=== PATIENT | female | born 1975 | race Hispanic/Latino ===

== ENCOUNTER 2017-01-27 12:09 | Outpatient (CLI) | payer MEDICAID ==
[2017-01-27] MEDS ORDERED: NACL ONE (13:08)
--- NOTE | 2017-01-27 13:36 | Cat Scan Report ---
CTA CHEST: History: Shortness of breath, pulmonary embolus Technique: Helical CT following IV contrast. Pulmonary embolus protocol. Sagittal and coronal reformatted images. Rotational MIP images. Findings: Compared to the CTA chest dated 06/02/15. Contrast bolus is satisfactory. No pulmonary embolus is identified. Please note that the right pulmonary arteries are smaller caliber than the left pulmonary arteries. This finding is unchanged and may be related to chronic pulmonary embolism. Please correlate with the patient's history. The thyroid gland, tracheobronchial tree, esophagus, heart, pericardium, mediastinal vessels, lung bush and bony thorax are unremarkable. Impression: No pulmonary embolus is identified. No change is demonstrated since 06/02/15. See above. These findings were called to Dr. Chambers's office at 1335 hrs.
== END 2017-01-27 12:10 | disposition home or self-care (01) ==
LOC: CT 12:09
DX: I74.11 Embolism and thrombosis of thoracic aorta (principal); M79.605 Pain in left leg; R60.1 Generalized edema
CPT/HCPCS: 71275; 93971; Q9967

== ENCOUNTER 2017-10-23 14:26 | Emergency (ER) | payer MEDICAID ==
[2017-10-23 15:08] VITALS: BP 130/76
[2017-10-23 15:29] LABS: Basophils # (Auto) 0.1 K/mm3 (0.0-0.1); Basophils % (Auto) 0.7 % (0.0-1.8); Eosinophils # (Auto) 0.1 K/mm3 (0.0-0.4); Eosinophils % (Auto) 1.8 % (0.0-4.3); Hematocrit 41.2 % (30.3-42.9); Hemoglobin 13.8 gm/dl (10.1-14.3); Lymphocytes # (Auto) 2.9 K/mm3 (1.2-5.4); Lymphocytes % (Auto) 37.2 % (13.4-35.0); Mean Corpuscular HGB Conc 34 % (30-34); Mean Corpuscular Hemoglobin 30 pg (28-32); Mean Corpuscular Volume 89 fl (79-97); Monocytes # (Auto) 0.5 K/mm3 (0.0-0.8); Monocytes % (Auto) 6.7 % (0.0-7.3); Platelet Count 240 K/mm3 (140-440); Red Blood Count 4.66 M/mm3 (3.65-5.03); Red Cell Distribution Width 14.1 % (13.2-15.2)
[2017-10-23 15:47] LABS: BUN/Creatinine Ratio 20; Blood Urea Nitrogen 12 mg/dL (7-17); Calcium 8.9 mg/dL (8.4-10.2); Hemolysis Index 1
--- NOTE | 2017-10-23 16:41 | XRay Report ---
FINAL REPORT EXAM: XR CHEST ROUTINE 2V HISTORY: Shortness of breath TECHNIQUE: PA and lateral views of the chest PRIORS: CXR 09/01/2015 FINDINGS: Lines, tubes, and devices: N/A Lungs and pleura: Trachea is normal in position. lungs are clear of infiltrate, pleural effusion, vascular congestion, or pneumothorax. No change. Cardiomediastinal silhouette: Cardiac and mediastinal silhouettes are unremarkable. Other: Bony structures are intact. IMPRESSION: No acute cardiopulmonary process seen. No change.
[2017-10-23] MEDS ORDERED: TYLENOL PO ONE (18:24)
[2017-10-23] MEDS ORDERED: ZOFRAN ODT ONE (18:54)
[2017-10-23] MEDS ORDERED: ZOFRAN ODT PO ONE (18:56)
--- NOTE | 2017-10-23 19:35 | Emergency Department Report ---
ED Chest Pain HPI - General Chief Complaint: Chest Pain Stated Complaint: CHEST PAIN Time Seen by Provider: 10/23/17 17:46 Source: patient, EMS Mode of arrival: Wheelchair Limitations: No Limitations - History of Present Illness Initial Comments: This is a 42 y.o. female that presents with chest pain for 2 days. Patient reports pain as 5/10 on pain scale and non-radiating. The pain is sharp and intermittent. Reports feeling worse since she arrived here. She have a headache since arrival and feel like her chest is tightening. Pain is in left chest wall area. Denies SOB, nausea, vomiting, radiating pain, burning sensation of throat , and recent travel. -: days(s) (2) Onset: during rest Pain Location: left chest Pain Radiation: none Severity: mild Severity scale (0 -10): 4 Quality: tightness, sharp Consistency: intermittent Improves With: nothing Worsens With: movement Treatments Prior to Arrival: none Aspirin use within the Past 7 Days: (0) No - Related Data Home Medications Medication Instructions Recorded Confirmed Last Taken Warfarin Sodium [Coumadin] 7.5 mg PO QDAY 07/15/13 06/02/15 01/27/15 FLUoxetine HCL [PROzac] 40 mg PO QDAY 01/28/15 06/02/15 01/28/15 clonazePAM [KlonoPIN] 1 mg PO Q8H 01/28/15 06/02/15 01/28/15 Gabapentin [Neurontin] 300 mg PO Q8HR 06/02/15 06/02/15 Unknown Previous Rx's Medication Instructions Recorded Last Taken Type HYDROcodone/APAP 10-325 [[place] 1 each PO Q8HR PRN #14 tablet 09/01/15 Unknown Rx 10-325 mg TAB] Levofloxacin [Levaquin TAB] 500 mg PO QDAY #10 tablet 09/01/15 Unknown Rx Promethazine [Phenergan TAB] 25 mg PO Q6HR PRN #20 tab 09/01/15 Unknown Rx Famotidine [Pepcid] 20 mg PO BID #20 tablet 07/05/16 Unknown Rx HYDROcodone/APAP 5-325 [[place] 1 - 2 each PO Q6HR PRN #10 tablet 07/05/16 Unknown Rx 5/325] Promethazine [Phenergan TAB] 25 mg PO Q6HR PRN #20 tab 07/05/16 Unknown Rx Promethazine [Phenergan] 25 mg [place] Q6HR PRN #10 supp.rect 07/05/16 Unknown Rx Allergies Allergy/AdvReac Type Severity Reaction Status Date / Time heparin Allergy Unknown Verified 05/20/14 22:00 ketorolac tromethamine Allergy Hives Verified 05/20/14 22:00 [From Toradol] pregabalin [From Lyrica] Allergy Unknown Verified 09/03/14 08:04 sulfamethoxazole Allergy Hives Verified 05/20/14 22:00 [From Septra] tramadol Allergy Hives Verified 05/20/14 22:00 trimethoprim [From Septra] Allergy Hives Verified 05/20/14 22:00 Heart Score - HEART Score History: Slightly suspicious EKG: Normal Age: < 45 Risk factors: 1-2 risk factors Troponin: < normal limit HEART Score: 1 ED Review of Systems ROS: Stated complaint: CHEST PAIN Other details as noted in HPI Constitutional: denies: chills, fever Respiratory: denies: cough, shortness of breath, wheezing Cardiovascular: chest pain. denies: palpitations Gastrointestinal: denies: abdominal pain, nausea, vomiting, diarrhea Neurological: headache. denies: weakness, paresthesias ED Past Medical Hx - Past Medical History Previous Medical History?: Yes Hx Hypertension: No Hx Deep Vein Thrombosis: Yes Hx Pulmonary Embolism: Yes Hx Renal Disease: No Hx Asthma: Yes (inhaler use 1 month ago) Additional medical history: x 15 PE per pt. FIBROMYALGIA - Surgical History Past Surgical History?: Yes Additional Surgical History: nasal 2010, Ovarian cyst removal. Hysterectomy- 2011 - Social History Smoking Status: Never Smoker Substance Use Type: Alcohol, Prescribed - Medications Home Medications: Home Medications Medication Instructions Recorded Confirmed Last Taken Type Warfarin Sodium [Coumadin] 7.5 mg PO QDAY 07/15/13 06/02/15 01/27/15 History FLUoxetine HCL [PROzac] 40 mg PO QDAY 01/28/15 06/02/15 01/28/15 History clonazePAM [KlonoPIN] 1 mg PO Q8H 01/28/15 06/02/15 01/28/15 History Gabapentin [Neurontin] 300 mg PO Q8HR 06/02/15 06/02/15 Unknown History HYDROcodone/APAP 10-325 [[place] 1 each PO Q8HR PRN #14 tablet 09/01/15 Unknown Rx 10-325 mg TAB] Levofloxacin [Levaquin TAB] 500 mg PO QDAY #10 tablet 09/01/15 Unknown Rx Promethazine [Phenergan TAB] 25 mg PO Q6HR PRN #20 tab 09/01/15 Unknown Rx Famotidine [Pepcid] 20 mg PO BID #20 tablet 07/05/16 Unknown Rx HYDROcodone/APAP 5-325 [[place] 1 - 2 each PO Q6HR PRN #10 tablet 07/05/16 Unknown Rx 5/325] Promethazine [Phenergan TAB] 25 mg PO Q6HR PRN #20 tab 07/05/16 Unknown Rx Promethazine [Phenergan] 25 mg [place] Q6HR PRN #10 supp.rect 07/05/16 Unknown Rx ED Physical Exam - General Limitations: No Limitations General appearance: alert, in no apparent distress - Respiratory Respiratory exam: Present: normal lung sounds bilaterally. Absent: respiratory distress, wheezes, rales, rhonchi, stridor, accessory muscle use, decreased breath sounds - Cardiovascular Cardiovascular Exam: Present: regular rate, normal rhythm, normal heart sounds, other (tenderness on palpation of costochondral margin, no swelling). Absent: systolic murmur, diastolic murmur, rubs, gallop - GI/Abdominal GI/Abdominal exam: Present: soft, normal bowel sounds. Absent: distended, tenderness, guarding, rebound, rigid, organomegaly, mass - Neurological Exam Neurological exam: Present: alert, oriented X3 - Psychiatric Psychiatric exam: Present: normal affect, flat affect - Skin Skin exam: Present: warm, dry, intact, normal color. Absent: rash ED Course Vital Signs 10/23/17 15:04 Temperature 98 F Pulse Rate 67 Respiratory 20 Rate Blood Pressure 130/76 O2 Sat by Pulse 98 Oximetry TONY score - Tony Score Age > 65: (0) No Aspirin use within the Past 7 Days: (0) No 3 or more CAD Risk Factors: (0) No 2 or more Angina events in past 24 hrs: (0) No Known CAD with more than 50% Stenosis: (0) No Elevated Cardiac Markers: (0) No ST Deviation Greater than 0.5mm: (0) No TONY Score: 0 ED Medical Decision Making - Lab Data Result diagrams: 10/23/17 15:11 10/23/17 15:11 - Radiology Data Radiology results: report reviewed CXR: no acute cardiopulmonary process. - Medical Decision Making This is a 42 y.o. female that presents with chest pain for 2 days. Patient examined by me and stable. No distress noted. Obtained BMP, CBC, & Troponin all normal. Vitals stable. Given zofran 4 mg ODT po and tylenol 650 mg po once. Normal assessment. T score 1 and Heart score 0. Discharged home in stable condition. No medication ordered. Follow up with PCP in 2-3 days. Discussed s/s to return to ER. Critical care attestation.: If time is entered above; I have spent that time in minutes in the direct care of this critically ill patient, excluding procedure time. ED Disposition Clinical Impression: Costochondritis Chest pain Qualifiers: Chest pain type: intercostal pain Qualified Code(s): R07.82 - Intercostal pain Disposition: - TO HOME OR SELFCARE Is pt being admited?: No Does the pt Need Aspirin: No Condition: Stable Instructions: Chest Pain (ED), Costochondritis (ED) Additional Instructions: Take ibuprofen, tylenol, or naproxen for pain control. Increase fluid intake. Follow up with Primary Care Provider in 2-3 days. Return to ER if chest pain, fever, SOB, or difficulty breathing. Referrals: [facility] [Outside] - 3-5 Days [facility] [Outside] - 3-5 Days [facility] [Outside] - 3-5 Days Time of Disposition: 20:03 Print Language: ICELANDIC
--- NOTE | 2017-10-23 21:51 | Emergency Department Report ---
Chief Complaint: Chest Pain Stated Complaint: CHEST PAIN Time Seen by Provider: 10/23/17 17:46 - HPI History of Present Illness: The patient is a 42-year-old female who presents for evaluation of chest pain. The patient is well-known to myself and has presented multiple times in previous years for evaluation of chest pain. The patient complains of constant severe 10 out of 10 midsternal chest pain since last night, greater than 12 hours prior to my evaluation, exacerbated with movement, sharp in quality. The patient denies fever, trauma to the chest or back, neck pain, parasthesias, dyspnea, cough, hemoptysis, palpitations, dizziness, syncope, unilateral leg swelling, calf muscle pain. - Exam Vital Signs: Vital Signs 10/23/17 15:04 Temperature 98 F Pulse Rate 67 Respiratory 20 Rate Blood Pressure 130/76 O2 Sat by Pulse 98 Oximetry MSE screening note: Focused history and physical exam performed. Due to findings the following was ordered: ED Medical Decision Making - Lab Data Result diagrams: 10/23/17 15:11 10/23/17 15:11 ED Disposition for MSE Clinical Impression: Costochondritis Disposition: DC-01 TO HOME OR SELFCARE Is pt being admited?: No Does the pt Need Aspirin: No Condition: Stable Instructions: Chest Pain (ED), Costochondritis (ED) Additional Instructions: Take ibuprofen, tylenol, or naproxen for pain control. Increase fluid intake. Follow up with Primary Care Provider in 2-3 days. Return to ER if chest pain, fever, SOB, or difficulty breathing. Referrals: [facility] [Outside] - 3-5 Days [facility] [Outside] - 3-5 Days [facility] [Outside] - 3-5 Days Print Language: EQUATORIAL GUINEAN
== END 2017-10-23 20:09 | disposition home or self-care (01) ==
LOC: ED 14:26
DX: M94.0 Chondrocostal junction syndrome [Tietze] (principal); J45.909 Unspecified asthma, uncomplicated; M79.7 Fibromyalgia; Z90.710 Acquired absence of both cervix and uterus; Z88.2 Allergy status to sulfonamides; Z88.8 Allergy status to other drugs, medicaments and biological substances; Z86.718 Personal history of other venous thrombosis and embolism; Z86.711 Personal history of pulmonary embolism
CPT/HCPCS: 36415; 71046; 80048; 84484; 85025; 93005; 93010; 99284; Q0162